=== PATIENT | female | born 1975 | race African-American/Black ===

== ENCOUNTER 2023-03-23 11:59 | Emergency (ER) | payer OTHER ==
[2023-03-23 12:14] VITALS: RESP 18; TEMP 98; BMI 36.6
[2023-03-23] MEDS ORDERED: ACETAMINOPHEN 1000 MG/100 ML BAG IVPB ONE (12:26)
[2023-03-23] MEDS ORDERED: METOCLOPRAMIDE HCL INJECTION 10 MG/2 ML VIAL IVPUSH ONE (12:26)
[2023-03-23] MEDS ORDERED: MECLIZINE HCL 25 MG TABLET (FP) PO ONE ×2 (12:27→14:49)
[2023-03-23] MEDS ORDERED: LACTATED RINGERS SOLUTION 1,000 ML/1,000 ML INFUS.BAG IV SCH (12:30)
[2023-03-23] MEDS ORDERED: MECLIZINE HCL 25 MG TABLET (FP) ONE ×2 (12:34→15:16)
[2023-03-23] MEDS ORDERED: METOCLOPRAMIDE HCL INJECTION 10 MG/2 ML VIAL ONE (12:34)
[2023-03-23 12:50] LABS: BASO % 0.3 % (0-2.0); HEMATOCRIT 40.3 % (32.4-45.2); HEMOGLOBIN 13.2 GM/dL (10.7-15.3); LYMPH % 12.5 % (8-40); MCH 27.2 pg (25.7-33.7); MCHC 32.8 g/dl (32.0-36.0); MEAN CELL VOLUME 82.8 fl (80-96); MEAN PLT VOLUME 12.6 fl (7.5-11.1); MONO % 4.3 % (3.8-10.2); NEUT % 82.9 % (42.8-82.8); PLATELET COUNT 255 10^3/uL (134-434); RBC 4.87 M/mm3 (3.60-5.2); RDW 13.5 % (11.6-15.6)
[2023-03-23 12:57] LABS: INR 1.17 (0.83-1.09); PROTHROMBIN TIME (PATIENT) 13.5 SEC (9.7-13.0)
[2023-03-23 12:59] LABS: ACTIVATED PTT 32.4 SECONDS (25.2-36.5)
[2023-03-23 13:01] LABS: POTASSIUM 3.8 mmol/L (3.5-5.1)
[2023-03-23 13:02] LABS: CALCIUM 9.8 mg/dL (8.5-10.1)
[2023-03-23 13:04] LABS: ALBUMIN 3.9 g/dl (3.4-5.0); BLOOD UREA NITROGEN 10.2 mg/dL (7-18); MAGNESIUM 1.7 mg/dL (1.8-2.4)
[2023-03-23 13:06] LABS: CREATININE 0.9 mg/dL (0.55-1.3)
[2023-03-23 13:08] LABS: BILIRUBIN,TOTAL 0.5 mg/dL (0.2-1); TOT PROT 7.4 g/dl (6.4-8.2)
[2023-03-23] MEDS ORDERED: ACETAMINOPHEN INJECTION 100 ML IVPB ONE (13:08)
[2023-03-23] MEDS ORDERED: MAGNESIUM SULF 50% (8.12 MEQ/2 ML-1 GM VIAL) IVPB ONE (15:07)
[2023-03-23 15:46] VITALS: BP 130/63; PULSE 85
== END 2023-03-23 16:29 | disposition home or self-care (01) ==
LOC: JER 11:59
PROC: 3E033GC Introduction of Other Therapeutic Substance into Peripheral Vein, Percutaneous Approach (ICD-10-PCS; principal; 2023-03-23)
DX: H81.393 Other peripheral vertigo, bilateral (principal); H53.149 Visual discomfort, unspecified; R11.2 Nausea with vomiting, unspecified
CPT/HCPCS: 36415; 70450-TC; 80053; 82962; 83735; 84703; 85025; 85610; 85730; 93005; 93010; 99285-25